=== PATIENT | female | born 1985 | race Caucasian/White ===

== ENCOUNTER 2021-11-06 22:34 | Emergency (ER) | payer BC, SELFPAY ==
[2021-11-07] MEDS ORDERED: Hydrocodone-Acetamin 15 ML UDCUP ONE (01:06)
[2021-11-07 01:51] LABS: SARS-CoV-2 NAA Rapid Test Not Detected (NotDetected)
== END 2021-11-07 02:43 | disposition home or self-care (01) ==
LOC: CSHERS 22:34
DX: J20.9 Acute bronchitis, unspecified (principal); R07.89 Other chest pain; R11.2 Nausea with vomiting, unspecified; R19.7 Diarrhea, unspecified; Z20.822 Contact with and (suspected) exposure to COVID-19
CPT/HCPCS: 0240U; 71045